=== PATIENT | female | born 1980 | race Caucasian/White ===

== ENCOUNTER → 2022-02-12 | Outpatient (CLI) | payer MEDICAID ==
[2022-02-12 11:25] LABS: Basophils # (A) 0.03 X 10*3/uL (0.00-0.10); Basophils % (A) 0.8 %; Eosinophils # (A) 0.12 X 10*3/uL (0.04-0.35); Eosinophils % (A) 3.3 %; HCT 45.2 % (37.2-46.3); HGB 14.5 g/dL (12.0-15.0); Immature Grans, Automated 0 %; Lymphocytes # (A) 1.59 X 10*3/uL (0.90-5.00); Lymphocytes % (A) 44.2 %; MCH 31.3 pg (27.0-32.0); MCHC 32.1 g/dL (32.0-37.0); MCV 97.6 fL (80.0-97.0); Mean Platelet Volume 10.3 fL (9.5-12.2); Monocytes # (A) 0.25 X 10*3/uL (0.20-1.00); Monocytes % (A) 6.9 %; NRBC Per 100 WBC 0 /100 WBCS (0.0-0.0); Neutrophils # (A) 1.61 X 10*3/uL (1.80-7.70); Neutrophils % (A) 44.8 %; Platelet Count 168 X 10*3/uL (140-440); RBC 4.63 X 10*6/uL (4.10-5.20); RDW 12.6 % (11.5-14.5)
[2022-02-12 12:04] LABS: Chol/HDL Ratio 3.63 Ratio; Ferritin 29.3 ng/mL (10.0-291.0); LDL Cholesterol,Calculated 138.3 mg/dL (0.0-131.0)
== END | disposition home or self-care (01) ==
LOC: LABWHC1 08:34
PROVIDERS: ATTEND Family Medicine
DX: Z00.00 Encounter for general adult medical examination without abnormal findings (principal); R53.83 Other fatigue; E06.3 Autoimmune thyroiditis
CPT/HCPCS: 36415; 80061; 82306; 82607; 82728; 84439; 84443; 85025

== ENCOUNTER → 2022-03-01 | Outpatient (CLI) | payer MEDICAID ==
--- NOTE | 2022-03-02 08:50 | MM ---
Reason for Exam: Screening (asymptomatic). Baseline mammogram. Patient History: Menarche at age 12. First Full-Term at age 35. Late child-bearing (after 30). Hormonal Contraceptives for 3 years from age 19 until age 22. Risk Values: Yamile 5 year model risk: 0.9%. NCI Lifetime model risk: 13.4%. Prior Study Comparison: Patient's first Mammogram. Tissue Density: The breast tissue is extremely dense which could obscure a lesion on mammography. Findings: Analyzed By CAD. No suspicious groups of microcalcifications, spiculated or lobular masses, architectural distortion or other secondary signs of malignancy are mammographically apparent. Overall Assessment: Negative, BI-RAD 1 Management: Screening Mammogram of both breasts in 1 year. A negative mammogram report should not preclude additional follow up of suspicious palpable abnormalities. Patient should continue monthly self breast exam. A clinical breast exam by your physician is recommended on an annual basis and results should be correlated with mammographic findings. Electronically signed and approved by: Richi Pate D.O. Radiologis
== END | disposition home or self-care (01) ==
LOC: RADMAMWWP 15:52
PROVIDERS: ATTEND Obstetrics & Gynecology
DX: Z08 Encounter for follow-up examination after completed treatment for malignant neoplasm (principal); Z80.3 Family history of malignant neoplasm of breast
CPT/HCPCS: 77063; 77067

== ENCOUNTER → 2022-03-01 | Outpatient (CLI) | payer MEDICAID ==
--- NOTE | 2022-03-02 07:07 | US ---
EXAMINATION TYPE: US thyroid st tissue head/neck DATE OF EXAM: 03/01/2022 COMPARISON: NONE CLINICAL HISTORY: E04.9 GOITER. goiter hosimottos GLAND SIZE: Right Lobe: 5.6 x 2.0 x 1.4 cm Overall Parenchyma: homogenous Left Lobe: 4.6 x 1.4 x 1.5 cm Overall Parenchyma: homogeneous Isthmus Thickness: .3 cm NODULES RIGHT: # of nodules measured on right: 0 LEFT: # of nodules measured on left: 0 ISTHMUS: # of nodules measured in the isthmus: 0 Bilateral neck scanned, no evidence of lymphadenopathy. IMPRESSION: Enlargement right thyroid lobe. No distinct solid or cystic nodule identified.
== END | disposition home or self-care (01) ==
LOC: RADUSWWP 15:55
PROVIDERS: ATTEND Family Medicine
DX: E04.9 Nontoxic goiter, unspecified (principal)
CPT/HCPCS: 76536

== ENCOUNTER → 2022-11-28 | Outpatient (CLI) | payer MEDICAID ==
[2022-11-28 22:35] LABS: HCT 45.9 % (37.2-46.3); HGB 14.8 g/dL (12.0-15.0); MCH 31.9 pg (27.0-32.0); MCHC 32.2 g/dL (32.0-37.0); MCV 98.9 fL (80.0-97.0); Mean Platelet Volume 10.5 fL (9.5-12.2); NRBC Per 100 WBC 0 /100 WBCS (0.0-0.0); Platelet Count 198 X 10*3/uL (140-440); RBC 4.64 X 10*6/uL (4.10-5.20); RDW 13.2 % (11.5-14.5); WBC 4.88 X 10*3/uL (4.50-10.00)
[2022-11-29 01:48] LABS: Albumin 4.7 g/dL (3.8-4.9); Albumin/Globulin Ratio 1.9 (1.60-3.17); Anion Gap 12.1 mmol/L (10.00-18.00); BUN/Creat Ratio 16.96 Ratio (12.00-20.00); Blood Urea Nitrogen 17.3 mg/dL (9.0-27.0); Calcium 9.5 mg/dL (8.7-10.3); Carbon Dioxide 22.8 mmol/L (20.0-27.5); Follicle Stimulating Hormone 2.2 mIU/mL; Globulin 2.5 g/dL (1.6-3.3); Non-African American GFR(CKD) 67.3 (60.0-200.0); Potassium 4.5 mmol/L (3.5-5.5); Total Bilirubin 1.1 mg/dL (0.30-1.20); Total Protein 7.2 g/dL (6.2-8.2)
[2022-11-29 01:50] LABS: C-Peptide 0.98 ng/mL (0.81-3.85); T4, Free (Free Thyroxine) 1.22 ng/dL (0.800-1.800)
== END | disposition home or self-care (01) ==
LOC: LABWHC1 15:39
PROVIDERS: ATTEND Internal Medicine Endocrinology, Diabetes & Metabolism
DX: E06.3 Autoimmune thyroiditis (principal); Z78.0 Asymptomatic menopausal state; R73.03 Prediabetes
CPT/HCPCS: 36415; 80053; 82533; 83001; 84439; 84443; 84480; 84481; 84681; 85027; 86376

== ENCOUNTER → 2023-03-06 | Outpatient (CLI) | payer MEDICAID ==
--- NOTE | 2023-03-07 08:14 | MM ---
Reason for Exam: Screening (asymptomatic). Last screening mammogram was performed less than 1 month ago. Patient History: Menarche at age 12. First Full-Term at age 35. Late child-bearing (after 30). Hormonal Contraceptives for 3 years from age 19 until age 22. Last menstrual period: 02/16/2023 Risk Values: Yamile 5 year model risk: 1.0%. NCI Lifetime model risk: 13.2%. Prior Study Comparison: 03/01/2022 Bilateral MG 3D screening mammo w/cad, [facility]. Tissue Density: The breast tissue is heterogeneously dense. This may lower the sensitivity of mammography. Findings: Analyzed By CAD. A few scattered benign-appearing round calcifications throughout the bilateral breasts are redemonstrated. There is no suspicious group of microcalcifications or new suspicious mass in either breast. Overall Assessment: Benign, BI-RAD 2 Management: Screening Mammogram of both breasts in 1 year. Some advise bilateral breast ultrasound surveillance in patients with background dense tissue. Patient should continue monthly self-breast exams. A clinical breast exam by your physician is recommended on an annual basis. This exam should not preclude additional follow-up of suspicious palpable abnormalities. Note on Yamile scores and lifetime risk: 1. A Yamile score greater than 3% is considered moderate risk. If this is the case, consider specialist referral to assess eligibility for a risk reducing agent. 2. If overall lifetime risk for the development of breast cancer is 20% or higher, the patient may qualify for future screening with alternating mammogram and breast MRI. Electronically signed and approved by: Uriel Daigle M.D.
== END | disposition home or self-care (01) ==
LOC: RADMAMWWP 15:49
PROVIDERS: ATTEND Obstetrics & Gynecology
DX: Z12.31 Encounter for screening mammogram for malignant neoplasm of breast (principal)
CPT/HCPCS: 77063; 77067

== ENCOUNTER → 2023-03-22 | Outpatient (CLI) | payer MEDICAID ==
--- NOTE | 2023-03-23 08:00 | US ---
EXAMINATION TYPE: US pelvic complete DATE OF EXAM: 03/22/2023 COMPARISON: 12/20/2013 CLINICAL INDICATION: Female, 42 years old with history of N94.6 DYSMENORRHEA, UNSPECIFIED; pain in pr oximal posterior thigh that coincides with menstrual pain, R/O endometriosis TECHNIQUE: Transvaginal (TV). Date of LMP: 02/20/2023 EXAM MEASUREMENTS: Uterus: 9.2x4.4x5.9cm Endometrial Stripe: 1.0cm Right Ovary: 5.6x4.0x2.1cm Left Ovary: 3.8x2.7x3.6cm 1. Uterus: Anteverted arcuate uterus, anechoic areas noted in cervix 2. Endometrium: wnl, some anechoic area noted throughout 3. Right Ovary: exhibits string of pearls sign, complex area noted: 2.0xx2.7x1.4cm 4. Left Ovary: exhibits string of pearls sign 5. Bilateral Adnexa: Obscured by overlying bowel gas 6. Posterior cul-de-sac: free fluid noted Arcuate anteverted uterus morphology. Incidental nabothian cysts. Endometrium is within normal limits . Peripheral bilateral small follicles within both ovaries. Complex area noted within the right ovary favored to represent a hemorrhagic cyst. Small amount of free fluid identified in the posterior cul- de-sac. IMPRESSION: 1. Complex cystic lesion noted within the right ovary suggestive of a hemorrhagic cyst. Consider foll ow-up ultrasound in 6-12 weeks to assess resolution. 2. Endometrium is within normal limits. 3. Bilateral ovarian small peripheral follicles which could be seen setting of polycystic ovarian syn drome. Clinical correlation is recommended.
== END | disposition home or self-care (01) ==
LOC: RADUSWWP 15:31
PROVIDERS: ATTEND Obstetrics & Gynecology
DX: N83.02 Follicular cyst of left ovary (principal); N83.01 Follicular cyst of right ovary; N94.6 Dysmenorrhea, unspecified
CPT/HCPCS: 76830; 76856

== ENCOUNTER → 2023-04-22 | Outpatient (CLI) | payer MEDICAID ==
[2023-04-23 07:31] LABS: Basophils # (A) 0.03 X 10*3/uL (0.00-0.10); Basophils % (A) 0.8 %; Eosinophils % (A) 2.5 %; HCT 43.2 % (37.2-46.3); HGB 14.5 d/dL (12.0-15.0); Lymphocytes # (A) 1.39 X 10*3/uL (0.90-5.00); MCHC 33.6 d/dL (32.0-37.0); MCV 98.2 FL (80.0-97.0); Mean Platelet Volume 10.4 FL (9.5-12.2); Monocytes # (A) 0.23 X 10*3/uL (0.20-1.00); Monocytes % (A) 5.8 %; NRBC Per 100 WBC 0 X 10*3/uL (0.00-0.01); Neutrophils # (A) 2.21 X 10*3/uL (1.80-7.70); Neutrophils % (A) 55.6 %; Platelet Count 175 X 10*3/uL (140-440); RDW 12.6 % (11.5-14.5); WBC 3.97 X 10*3/uL (4.50-10.00)
[2023-04-23 08:34] LABS: ALT 82 U/L (8-44); AST 64 U/L (13-35); Albumin 4.4 d/dL (3.8-4.9); Alkaline Phosphatase 62 U/L (41-126); BUN/Creat Ratio 16.38 Ratio (12.00-20.00); Blood Urea Nitrogen 13.1 mg/dL (9.0-27.0); Carbon Dioxide 23.1 mmol/L (21.6-31.8); Chloride 104 mmol/L (96-109); Chol/HDL Ratio 3.06 Ratio; Globulin 2.2 d/dL (1.6-3.3); Glucose 89 mg/dL (70-110); LDL Cholesterol,Calculated 119.5 mg/dL (0.0-131.0); Sodium 139 mmol/L (135-145); T4, Free (Free Thyroxine) 1.08 ng/dL (0.80-1.80); Total Bilirubin 0.8 mg/dL (0.3-1.2); Total Protein 6.6 d/dL (6.2-8.2); VLDL Calculation 10.42 mg/dL (5.00-40.00)
== END | disposition home or self-care (01) ==
LOC: LABWHC1 09:54
PROVIDERS: ATTEND Internal Medicine
DX: Z00.00 Encounter for general adult medical examination without abnormal findings (principal); E78.2 Mixed hyperlipidemia; E06.3 Autoimmune thyroiditis; R79.9 Abnormal finding of blood chemistry, unspecified; R00.1 Bradycardia, unspecified
CPT/HCPCS: 36415; 80053; 80061; 82306; 83036; 84403; 84439; 84443; 84482; 85025; 86376; 93005

== ENCOUNTER → 2023-08-12 | Outpatient (CLI) | payer MEDICAID ==
[2023-08-12 23:32] LABS: Hepatitis A Antibody IgM Nonreactive; Hepatitis B Core IgM Nonreactive; Hepatitis B Surface Antigen Nonreactive; Hepatitis C IgG Antibody Nonreactive
[2023-08-12 23:38] LABS: ALT 37 U/L (8-44); AST 25 U/L (13-35); Albumin 4.6 g/dL (3.8-4.9); Albumin/Globulin Ratio 1.84 Ratio (1.60-3.17); Alkaline Phosphatase 71 U/L (41-126); BUN/Creat Ratio 23.62 Ratio (12.00-20.00); Bilirubin, Conjugated 0.24 mg/dL (0.20-0.40); Bilirubin,Unconjugated 0.86 mg/dL (0.20-1.00); Blood Urea Nitrogen 18.9 mg/dL (9.0-27.0); Calcium 9.5 mg/dL (8.7-10.3); Ceruloplasmin 23.7 mg/dL (20.0-60.0); Chloride 103 mmol/L (96-109); Globulin 2.5 g/dL (1.6-3.3); Glucose 93 mg/dL (70-110); Iron 121 UG/DL (50-170); Potassium 4.6 mmol/L (3.5-5.5); Sodium 138 mmol/L (135-145); T4, Free (Free Thyroxine) 1.31 ng/dL (0.80-1.80); Total Bilirubin 1.1 mg/dL (0.3-1.2); Total Iron Binding Capacity 440 UG/DL (228-460); Total Protein 7.1 g/dL (6.2-8.2)
[2023-08-12 23:53] LABS: Follicle Stimulating Hormone 2.3 mIU/mL
== END | disposition home or self-care (01) ==
LOC: LABWHC1 09:02
PROVIDERS: ATTEND Obstetrics & Gynecology
DX: N95.9 Unspecified menopausal and perimenopausal disorder (principal); E03.9 Hypothyroidism, unspecified; G47.00 Insomnia, unspecified; R74.8 Abnormal levels of other serum enzymes
CPT/HCPCS: 36415; 80053; 80074; 82248; 82390; 82533; 82670; 83001; 83516; 83540; 83550; 84144; 84403; 84439; 84443; 84481; 86038

== ENCOUNTER → 2023-09-07 | Outpatient (CLI) | payer MEDICAID ==
[2023-09-08 06:57] LABS: Anti-Smith Ab Interp Negative (Negative); DNA Double-Stranded Indetermin (Negative); Scleroderma SC-70 Ab <0.2 AI
== END | disposition home or self-care (01) ==
LOC: LABWHC1 15:41
PROVIDERS: ATTEND Internal Medicine
DX: E06.3 Autoimmune thyroiditis (principal); E78.2 Mixed hyperlipidemia; R79.9 Abnormal finding of blood chemistry, unspecified
CPT/HCPCS: 36415; 86225; 86235

== ENCOUNTER → 2024-03-07 | Outpatient (CLI) | payer MEDICAID ==
--- NOTE | 2024-03-11 18:10 | MM ---
Reason for Exam: Screening (asymptomatic). Last screening mammogram was performed 12 month(s) ago. Patient History: Menarche at age 12. First Full-Term at age 35. Late child-bearing (after 30). Hormonal Contraceptives for 3 years from age 19 until age 22. Last menstrual period: 02/16/2024 Risk Values: Yamile 5 year model risk: 1.1%. NCI Lifetime model risk: 13.1%. Prior Study Comparison: 03/01/2022 Bilateral MG 3D screening mammo w/cad, [facility]. 03/06/2023 Bilateral MG 3D screening mammo w/cad, [facility]. Tissue Density: The breasts are heterogeneously dense, which may obscure small masses. Findings: Analyzed By CAD. Asymmetric density outer aspect right breast cc view posterior depth persists on 2-D images. This may represent superimposition shadow but further evaluation is recommended. Otherwise, no significant change. Overall Assessment: Incomplete: need additional imaging evaluation, BI-RAD 0 Management: Special View Mammogram of the right breast. Include spot 3-D CC, 3-D XCCL, 3-D CC rolled, and 3-D lateral views. [facility] will attempt to contact patient to return for supplemental views and ultrasound if indicated. Electronically signed and approved by: Omid Baer M.D. Radiologist
== END | disposition home or self-care (01) ==
LOC: RADMAMWWP 15:45
PROVIDERS: ATTEND Obstetrics & Gynecology
DX: Z12.31 Encounter for screening mammogram for malignant neoplasm of breast (principal)
CPT/HCPCS: 77063; 77067

== ENCOUNTER → 2024-03-15 | Outpatient (CLI) | payer MEDICAID ==
--- NOTE | 2024-03-21 12:03 | MM ---
Reason for Exam: Additional evaluation requested from abnormal screening. Last screening mammogram was performed less than 1 month ago. Patient History: Menarche at age 12. First Full-Term at age 35. Late child-bearing (after 30). Hormonal Contraceptives for 3 years from age 19 until age 22. Risk Values: Yamile 5 year model risk: 1.1%. NCI Lifetime model risk: 13.1%. Prior Study Comparison: 03/01/2022 Bilateral MG 3D screening mammo w/cad, [facility]. 03/06/2023 Bilateral MG 3D screening mammo w/cad, [facility]. 03/07/2024 Bilateral MG 3D screening mammo w/cad, [facility]. Tissue Density: Right: The breasts are heterogeneously dense, which may obscure small masses. Findings: Analyzed By CAD. The questioned area of asymmetric density far posterior outer aspect of the right breast does not persist on additional spot 3-D view. Findings compatible with superimposition shadow. Overall Assessment: Benign, BI-RAD 2 Management: Screening Mammogram of both breasts in 1 year. Results were given to the patient verbally at the time of exam. Patient should continue monthly self-breast exams. A clinical breast exam by your physician is recommended on an annual basis. This exam should not preclude additional follow-up of suspicious palpable abnormalities. Note on Yamile scores and lifetime risk: 1. A Yamile score greater than 3% is considered moderate risk. If this is the case, consider specialist referral to assess eligibility for a risk reducing agent. 2. If overall lifetime risk for the development of breast cancer is 20% or higher, the patient may qualify for future screening with alternating mammogram and breast MRI. Electronically signed and approved by: Omid Baer M.D. Radiologist
== END | disposition home or self-care (01) ==
LOC: RADMAMWWP 14:40
PROVIDERS: ATTEND Obstetrics & Gynecology
DX: R92.331 Mammographic heterogeneous density, right breast (principal); R92.8 Other abnormal and inconclusive findings on diagnostic imaging of breast
CPT/HCPCS: 77061; 77065

== ENCOUNTER → 2024-07-27 | Outpatient (CLI) | payer MEDICAID ==
[2024-07-27 12:35] LABS: Appearance,Urine Clear (Clear); Bilirubin,Urine Negative (Negative); Blood,Urine Negative (Negative); Color,Urine Colorless; Glucose,Urine (UA) Negative (Negative); Ketones,Urine Negative (Negative); Leukocyte Esterase,Urine Negative (Negative); Nitrite,Urine Negative (Negative); PH, Urine 7.5 (5.0-8.0); Protein,Urine Negative (Negative); Urobilinogen,Urine <2.0 mg/dL (<2.0)
[2024-07-27 22:45] LABS: Basophils # (A) 0.03 X 10*3/uL (0.00-0.10); Basophils % (A) 0.7 %; Eosinophils # (A) 0.12 X 10*3/uL (0.04-0.35); Eosinophils % (A) 2.8 %; HGB 15.1 g/dL (12.0-15.0); Lymphocytes # (A) 1.64 X 10*3/uL (0.90-5.00); Lymphocytes % (A) 38.4 %; MCH 32.1 pg (27.0-32.0); MCHC 32.8 g/dL (32.0-37.0); MCV 97.7 FL (80.0-97.0); Mean Platelet Volume 9.8 FL (9.5-12.2); Monocytes # (A) 0.36 X 10*3/uL (0.20-1.00); Monocytes % (A) 8.4 %; NRBC Per 100 WBC 0 X 10*3/uL (0.00-0.01); Neutrophils % (A) 49.2 %; Platelet Count 211 X 10*3/uL (140-440); RBC 4.71 X 10*6/uL (4.10-5.20); RDW 12.5 % (11.5-14.5); WBC 4.27 X 10*3/uL (4.50-10.00)
[2024-07-27 23:21] LABS: BUN/Creat Ratio 21.25 Ratio (12.00-20.00); Carbon Dioxide 24.4 mmol/L (21.6-31.8); Chloride 103 mmol/L (96-109); Chol/HDL Ratio 3.39 Ratio; Glucose 90 mg/dL (70-110); LDL Cholesterol,Calculated 129.1 mg/dL (0.0-131.0); Magnesium 2.2 mg/dL (1.5-2.4); Potassium 4.7 mmol/L (3.5-5.5); Sodium 137 mmol/L (135-145); Uric Acid 4.1 mg/dL (2.9-7.7)
[2024-07-27 23:22] LABS: ALT 18 U/L (8-44); AST 23 U/L (13-35); Albumin 4.5 g/dL (3.8-4.9); Albumin/Globulin Ratio 1.67 Ratio (1.60-3.17); Alkaline Phosphatase 70 U/L (41-126); Calcium 9.3 mg/dL (8.7-10.3); Globulin 2.7 g/dL (1.6-3.3); Total Bilirubin 0.8 mg/dL (0.3-1.2); Total Protein 7.2 g/dL (6.2-8.2)
== END | disposition home or self-care (01) ==
LOC: LABWHC1 08:36
PROVIDERS: ATTEND Internal Medicine
DX: Z00.00 Encounter for general adult medical examination without abnormal findings (principal); E78.2 Mixed hyperlipidemia; E06.3 Autoimmune thyroiditis; E55.9 Vitamin D deficiency, unspecified; R00.1 Bradycardia, unspecified
CPT/HCPCS: 36415; 80053; 80061; 81003; 82306; 83036; 83735; 84443; 84481; 84550; 85025; 86800; 93005

== ENCOUNTER → 2025-03-26 | Outpatient (CLI) | payer MEDICAID ==
--- NOTE | 2025-03-27 08:42 | MM ---
Reason for Exam: Screening (asymptomatic). Last mammogram was performed 1 year(s) and 1 month(s) ago. Patient History: Menarche at age 12. First Full-Term at age 35. Late child-bearing (after 30). Hormonal Contraceptives for 3 years from age 19 until age 22. Risk Values: Yamile 5 year model risk: 1.1%. NCI Lifetime model risk: 13.0%. Prior Study Comparison: 03/06/2023 Bilateral MG 3D screening mammo w/cad, [facility]. 03/07/2024 Bilateral MG 3D screening mammo w/cad, [facility]. 03/15/2024 Right MG 3D work up w/cad RT, [facility]. Tissue Density: The breasts are extremely dense, which lowers the sensitivity of mammography. Findings: Analyzed By CAD. There is no suspicious group of microcalcifications or new suspicious mass in either breast. Benign-appearing calcifications. Overall Assessment: Benign, BI-RAD 2 Management: Screening Mammogram of both breasts in 1 year. . Patient should continue monthly self-breast exams. A clinical breast exam by your physician is recommended on an annual basis. This exam should not preclude additional follow-up of suspicious palpable abnormalities. Note on Yamile scores and lifetime risk: 1. A Yamile score greater than 3% is considered moderate risk. If this is the case, consider specialist referral to assess eligibility for a risk reducing agent. 2. If overall lifetime risk for the development of breast cancer is 20% or higher, the patient may qualify for future screening with alternating mammogram and breast MRI. [facility], , 03/27/2025 8:37 AM. Electronically signed and approved by: Jeronimo Weir M.D. Radiologis
== END | disposition home or self-care (01) ==
LOC: RADMAMWWP 16:41
PROVIDERS: ATTEND Obstetrics & Gynecology
DX: Z12.31 Encounter for screening mammogram for malignant neoplasm of breast (principal); R92.343 Mammographic extreme density, bilateral breasts; R92.1 Mammographic calcification found on diagnostic imaging of breast; Z92.0 Personal history of contraception
CPT/HCPCS: 77063; 77067